=== PATIENT | male | born 1970 | race Caucasian/White ===

== ENCOUNTER 2020-09-02 16:28 | Emergency (ER) | payer BC, SELFPAY ==
[2020-09-02 16:33] VITALS: BP 138/78; PULSE 87; RESP 16; O2SAT 98; BMI 28.1
--- NOTE | 2020-09-02 16:46 | HMH.EDUTC ---
[facility] Disposition Clinical Impression: Exposure to COVID-19 virus, Bronchitis Sinusitis Qualifiers: Sinusitis location: unspecified location Chronicity: acute Recurrence: non-recurrent Qualified Code(s): J01.90 - Acute sinusitis, unspecified Disposition: Home, Self-Care Condition on Discharge: Good Instructions: Sinusitis, DI for Sinusitis Additional Instructions: Drink plenty of fluids. Take tylenol or ibuprofen for pain or fever. Take the medications as directed. Follow up with your regular doctor. GO TO THE ER FOR ANY WORSENING SYMPTOMS Prescriptions: Amoxicillin/Potassium Clav [Augmentin 875-125 Tablet] 1 tab PO Q12H 10 Days #20 tab Transmission Status: Received by [facility] predniSONE [Prednisone 20mg Tab] 20 mg PO BID 4 Days #8 tab Transmission Status: Received by [facility] Referrals: Gerardo Wick [Primary Care Provider] - Time of Disposition: 16:54 Medical Decision Making - Medical Records Medical records reviewed: No: I reviewed the patient's medical records. - Nickolas Inquiry Pt receiving controlled substance: No Vital Signs: 09/02/20 16:33 09/02/20 17:08 Temperature 98 F Temperature Source Oral Pulse Rate 88 Pulse Rate [Right] 87 Respiratory Rate 16 16 Blood Pressure 132/70 Blood Pressure [Right Arm] 138/78 Blood Pressure Mean [Right Arm] 98 Blood Pressure Source Automatic Cuff Blood Pressure Source [Right Arm] Automatic Cuff Blood Pressure Position Sitting Blood Pressure Position [Right Arm] Sitting 02 Sat by Pulse Oximetry 98 Oxygen Delivery Method Room Air Room Air Orders (Tests/Meds): ORDERS Category Date Time Status Covid-19 Nasal PCR ([facility]) Routine Lab 09/02/20 17:00 Received [facility] HPI - General Stated complaint: congestion Time Seen by Provider: 09/02/20 16:46 Mode of Arrival: Ambulatory Source of Information: Patient Limitations: No Limitations Description of Symptoms (Recalled from Triage Doc. by RN): pt c/o sinus pressure ,headache, and not feelig well for the past week HEENT Symptoms (Recalled from RN notes): Yes (sinus pressure) Resp Symptoms (Recalled from RN notes): No Skin Symptoms (Recalled from RN notes): No MS Symptoms (Recalled from RN notes): No Functional Status (Recalled from RN notes): na - History of Present Illness Provider Complaint: He states that he has felt bad and for the past 2 days. He feels like he has a sinus infection. He denies any known exposure to covid. He has covid-19 back in April of last year. - Related Data Previous Rx's Medication Instructions Recorded Amoxicillin/Potassium Clav 1 tab PO Q12H 10 Days #20 tab 09/02/20 [Augmentin 875-125 Tablet] predniSONE [Prednisone 20mg 20 mg PO BID 4 Days #8 tab 09/02/20 Tab] Allergies Allergy/AdvReac Type Severity Reaction Status Date / Time No Known Allergies Allergy Verified 09/02/20 16:41 - Worker's Comp Is this a Worker's Comp case?: No [facility] History - Hepatitis A Screen Drug use history?: No High risk sexual behaviors?: No History of sexually transmitted infection?: No Currently employed?: No Childcare worker?: No Do you have indoor plumbing?: Yes Do you have electricity?: Yes Attestation statement:: This patient has been screened for Hepatitis A risk factors. I have reviewed the patient's past medical history: Yes ROS Obtained: Yes All systems reviewed & no additional complaints - Constitutional Constitutional: Denies chills, Denies fever(s), Reports poor appetite, Reports malaise - Eyes Eyes: Denies eye discharge - ENT Ears, Nose, Mouth, and Throat: Reports as per HPI - Cardiovascular Cardiovascular: Denies chest pain - Respiratory Respiratory: Reports chest congestion, Reports cough, Denies dyspnea, Denies stridor, Denies wheezing - Gastrointestinal Gastrointestingal: Denies: abdominal pain, diarrhea, nausea, vomiting Physical Exam - General General appearance: al
[2020-09-02 17:08] VITALS: BP 132/70; PULSE 88; RESP 16; TEMP 36.6; O2SAT 98
--- NOTE | 2020-09-03 09:18 | PC.NURSE ---
patient notified of positive covid results
== END 2020-09-02 17:09 | disposition home or self-care (01) ==
PROVIDERS: Emergency Provider Nurse Practitioner Family; PCP Family Medicine
DX: U07.1 COVID-19 (principal); J01.90 Acute sinusitis, unspecified
CPT/HCPCS: 99202; G0463; U0003

== ENCOUNTER 2021-01-29 13:13 | Emergency (ER) | payer BC, SELFPAY ==
[2021-01-29 13:15] VITALS: BP 134/92; PULSE 78; RESP 16; TEMP 37.1; O2SAT 98; BMI 24.4
--- NOTE | 2021-01-29 13:36 | CT_ITS ---
PROCEDURE INFORMATION: Exam: CT Abdomen And Pelvis Without Contrast Exam date and time: 01/29/2021 1:36 PM Age: 50 years old Clinical indication: Abdominal pain; Flank; Left; Additional info: R/O stone TECHNIQUE: Imaging protocol: Computed tomography of the abdomen and pelvis without contrast. Radiation optimization: All CT scans at this facility use at least one of these dose optimization techniques: automated exposure control; mA and/or kV adjustment per patient size (includes targeted exams where dose is matched to clinical indication); or iterative reconstruction. COMPARISON: No relevant prior studies available. FINDINGS: Mediastinal space: A small hiatal hernia is present. Liver: Normal. No mass. Gallbladder and bile ducts: Normal. No calcified stones. No ductal dilation. Pancreas: Normal. No ductal dilation. Spleen: Normal. No splenomegaly. Adrenal glands: Normal. No mass. Kidneys and ureters: There is a 3 mm obstructing ureteral calculus at the left ureteropelvic junction with associated proximal grade 3 hydronephrosis. This is consistent with left-sided obstructive uropathy. Stomach and bowel: Unremarkable. No obstruction. No mucosal thickening. Appendix: No evidence of appendicitis. Intraperitoneal space: Unremarkable. No free air. No significant fluid collection. Vasculature: Unremarkable. No abdominal aortic aneurysm. Lymph nodes: Unremarkable. No enlarged lymph nodes. Urinary bladder: Unremarkable as visualized. Reproductive: Unremarkable as visualized. Bones/joints: Unremarkable. No acute fracture. Soft tissues: Unremarkable. IMPRESSION: There is a 3 mm obstructing ureteral calculus at the left ureteropelvic junction with associated proximal grade 3 hydronephrosis. This is consistent with left-sided obstructive uropathy.
--- NOTE | 2021-01-29 13:38 | HMH.EDGENADL ---
ED Disposition Clinical Impression: Ureterolithiasis Disposition: Home, Self-Care Condition on Discharge: Good Instructions: Kidney Stones -- Adult Prescriptions: Ondansetron [Zofran 4mg ODT] 4 mg PO Q6HP PRN #30 tab.rapdis PRN Reason: Nausea Transmission Status: Received by [facility] Tamsulosin HCl 0.4 mg PO DAILY #14 cap Transmission Status: Received by [facility] Ketorolac Tromethamine [Toradol 10mg tablet] 10 mg PO Q6H 5 Days #20 tab Transmission Status: Received by [facility] Referrals: Gerardo Wick [Primary Care Provider] - - Critical Care Critical Care Time: No Attestation: On 01/29/21, the high probability of a clinically significant, sudden or life threatening deterioration of the following system(s) required my full and direct attention, intervention and personal management. The time I documented below is in addition to time spent performing reported procedures but includes the following listed in this critical care notation. Medical Decision Making - Medical Records Medical records reviewed: Yes: I reviewed the patient's medical records. - Nickolas Inquiry Pt receiving controlled substance: No Vital Signs: 01/29/21 13:15 01/29/21 14:52 Temperature 98.8 F 98 F Temperature Source Oral Oral Pulse Rate 78 Pulse Rate [Radial] 78 Respiratory Rate 16 16 Blood Pressure 134/74 Blood Pressure [Right Arm] 134/92 H Blood Pressure Mean [Right Arm] 106 Blood Pressure Position [Right Arm] Sitting 02 Sat by Pulse Oximetry 98 Oxygen Delivery Method Room Air Room Air - Lab Data Lab results reviewed: Yes: I reviewed the patient's lab results. Lab Results 01/29/21 13:30: WBC 11.0 H, RBC 5.44, Hgb 16.7, Hct 48.7, MCV 89.4, MCH 30.7, MCHC 34.4, RDW 14.2, Plt Count 192, MPV 8.4, Neut % (Auto) 87.2 H, Lymph % (Auto) 8.9 L, Blair % (Auto) 3.2, Eos % (Auto) 0.2, Baso % (Auto) 0.5, Neut # (Auto) 9.6 H, Lymph # (Auto) 1.0, Blair # (Auto) 0.4, Eos # (Auto) 0.0, Baso # (Auto) 0.1, Total Counted 100, Neutrophils % (Manual) 91 H, Lymphocytes % (Manual) 5 L, Monocytes % (Manual) 3, Eosinophils % (Manual) 1, Platelet Estimate Normal, Hypochromasia 1+ 01/29/21 13:30: Sodium 142, Potassium 4.1, Chloride 102, Carbon Dioxide 29, Anion Gap 15.1 H, BUN 15, Creatinine 1.50 H, Estimated Creat Clear 70, Estimated GFR 50 L, Est GFR ( Amer) 60, Glucose 170 H, Calcium 9.7, Total Bilirubin 0.6, AST 33, ALT 46, Alkaline Phosphatase 82, Total Protein 8.5 H, Albumin 5.4 H, Globulin 3.1, Albumin/Globulin Ratio 1.7 Result diagrams: 01/29/21 13:30 01/29/21 13:30 Orders (Tests/Meds): ED MEDICATIONS Discontinued Medications Generic Name Dose Route Start Last Admin Trade Name Freq PRN Reason Stop Dose Admin Hydromorphone HCl 0.5 mg 01/29/21 14:56 01/29/21 14:15 Hydromorphone 2mg/Ml Syringe IV 01/29/21 14:57 0.5 mg ONCE ONE Administration Sodium Chloride 1,000 mls @ 999 mls/hr 01/29/21 13:45 01/29/21 13:38 Sod Chlor 0.9% 1000ml Bag IV 01/29/21 14:45 999 mls/hr .Q1H1M GLENDA Administration Ketorolac Tromethamine 30 mg 01/29/21 13:37 01/29/21 13:38 Ketorolac 30mg/Ml Vial IV 01/29/21 13:38 30 mg ONCE ONE Administration Ondansetron HCl 4 mg 01/29/21 13:37 01/29/21 13:38 Ondansetron 4mg/2ml Vial IV 01/29/21 13:38 4 mg ONCE ONE Administration Tamsulosin HCl 0.8 mg 01/29/21 13:40 01/29/21 13:45 Tamsulosin 0.4mg Capsule PO 01/29/21 13:41 0.8 mg ONCE ONE Administration - CT Data CT Scan: Abdomen, Pelvis Time Received: 14:[address] Reviewed: Yes: I have reviewed the patient's CT results Findings Narrative: 3mm L.proximal ureteral stone with mild associated hydroureter/nephrosis General Adult HPI - General Chief complaint: PAIN Stated complaint: pain in back going to left front Time Seen by Provider: 01/29/21 13:35 Mode of Arrival: Ambulatory Source of Information: Patient Limitations: No Limitations Description of Symp
[2021-01-29 14:01] LABS: Chloride 102 mmol/L (98-107)
[2021-01-29 14:02] LABS: Potassium 4.1 mmoL/L (3.5-5.1); Sodium 142 mmol/L (136-145)
[2021-01-29 14:04] LABS: Alanine Aminotransferase 46 U/L (12-78); Alkaline Phosphatase 82 U/L (38-126); Aspartate Amino Transferase 33 U/L (17-59); Bilirubin,Total 0.6 mg/dl (0.2-1.3); Blood Urea Nitrogen 15 mg/dl (9-20); Creatinine Clearance Estimated 70 mL/min (50-200); Estimated Glomerular Filt Rate 50 ml/min (>60); GFR (African American) 60 ML/MIN (>60)
[2021-01-29 14:05] LABS: Albumin Level 5.4 g/dl (3.5-5.0); Albumin/Globulin Ratio 1.7 (1.1-1.8); Anion Gap 15.1 mEq/L (5-15); Calcium 9.7 mg/dl (8.4-10.2); Carbon Dioxide 29 mmol/L (22.0-30.0); Globulin 3.1 g/dL (1.3-3.2); Glucose 170 mg/dl (74-100); Total Protein,Serum 8.5 g/dl (6.3-8.2)
[2021-01-29 14:52] VITALS: BP 134/74; PULSE 78; RESP 16; TEMP 36.6; O2SAT 98
[2021-01-29 14:54] LABS: Basophils # 0.1 K/mm3 (0-0.2); Basophils % 0.5 % (0.1-2.0); Eosinophils % 0.2 % (0.1-12.0); Hematocrit 48.7 % (42.0-52.0); Hemoglobin 16.7 g/dL (14.1-18.0); Lymphocytes % 8.9 % (10-50); Mean Corpuscular HGB Conc 34.4 g/dL (31.8-35.4); Mean Corpuscular Hemoglobin 30.7 pg (27.0-31.2); Mean Corpuscular Volume 89.4 fl (80-94); Mean Platelet Volume 8.4 fl (7.4-10.4); Monocytes # 0.4 K/mm3 (0.1-1.0); Monocytes % 3.2 % (1.7-9.3); Neutrophils # 9.6 K/mm3 (1.8-7.8); Neutrophils % 87.2 % (37.0-80.0); Platelet Count 192 K/mm3 (142-424); Red Blood Count 5.44 M/mm3 (4.60-6.20); Red Cell Distribution Width 14.2 % (11.5-17.5)
[2021-01-29 15:10] LABS: MANUAL DIFFERENTIAL MANUAL DIFFERENTIAL (MANUAL DIFF)
[2021-01-29 15:26] LABS: Eosinophils % 1 % (0-3); Lymphocytes % 5 % (10-50); Monocytes % 3 % (2-9); Neutrophils % 91 % (42-76); Total Cells Counted 100
[2021-01-29 15:27] LABS: Hypochromasia 1+; Platelet Estimate Normal
== END 2021-01-29 14:57 | disposition home or self-care (01) ==
PROVIDERS: Emergency Provider Emergency Medicine; PCP Family Medicine
DX: N20.1 Calculus of ureter (principal)
CPT/HCPCS: 74176; 80053; 85007; 85025; 96365; 96375; 99282; J2405